=== PATIENT | male | born 1965 | race Caucasian/White ===

== ENCOUNTER 2018-01-16 19:45 | Emergency (ER) | payer SELFPAY, BC | END 2018-01-16 22:04 | disposition left against medical advice (07) | LOC: E/R 19:45 | DX: Z53.21 Procedure and treatment not carried out due to patient leaving prior to being seen by health care provider (principal) ==

== ENCOUNTER 2018-01-24 15:08 | Emergency (ER) | payer BC | END 2018-01-24 16:54 | disposition home or self-care (01) | LOC: E/R 15:08 | DX: L03.116 Cellulitis of left lower limb (principal); R40.2142 Coma scale, eyes open, spontaneous, at arrival to emergency department; R40.2362 Coma scale, best motor response, obeys commands, at arrival to emergency department; R40.2252 Coma scale, best verbal response, oriented, at arrival to emergency department; F17.210 Nicotine dependence, cigarettes, uncomplicated | CPT/HCPCS: 99283-25; Z7502 ==